=== PATIENT | male | born 1960 | race Two or more races ===

== ENCOUNTER 2018-10-23 16:21 | Outpatient (CLI) | payer BC ==
--- NOTE | 2018-10-23 16:51 | XRAY Report ---
Reason: RT FOOT PAIN Procedure Date: 10/23/2018 Accession Number: [id number] / [id number] Procedure: XR - Foot 3 View RT CPT Code: FULL RESULT: EXAM: Foot 3 View RT DATE: 10/23/2018 4:26 PM CLINICAL HISTORY: RT FOOT PAIN COMPARISON: None. TECHNIQUE: 3 views. FINDINGS: Bones: The medial of 2 sesamoids plantar to the first metatarsal head is fractured. Joints: Normal. No subluxations. Soft Tissues: Vague soft tissue swelling is seen in the region of the first metatarsophalangeal joint. IMPRESSION: Sesamoid fracture. RADIA
== END 2018-10-23 16:22 | disposition home or self-care (01) ==
LOC: DI 16:21
PROVIDERS: ATTEND Specialist
DX: S92.811A Other fracture of right foot, initial encounter for closed fracture (principal)